=== PATIENT | female | born 1985 | race Caucasian/White ===

== ENCOUNTER 2019-09-15 14:58 | Emergency (ER) | payer OTHER ==
[~2019-09-15] VITALS: Ht 167.6 cm; Wt 70.9 kg
[2019-09-15 15:04] VITALS: TEMP 97.7
[2019-09-15 15:32] LABS: BASO % 0.3 % (0.0-2.0); EOS # 0.2 (0.0-0.7); EOS % 2.1 % (0-4.0); GRAN # 5.2 (1.4-6.5); GRAN % 59.3 % (42.2-75.2); HEMATOCRIT 44.7 % (37.0-47.0); HEMOGLOBIN 14.9 g/dl (12.5-16.0); LYMPH # 2.7 (1.2-3.4); LYMPH % 30.7 % (20.0-51.0); MEAN CELL VOLUME 93 fl (80.0-100.0); MEAN CORPUSCULAR HEMOGLOBIN 31 pg (27.0-31.0); MEAN CORPUSCULAR HGB CONC 33 g/dl (33.0-37.0); MEAN PLATELET VOLUME 11.7 fl (7.4-10.4); MONO # 0.6 (0.1-0.6); MONO % 7.4 % (1.7-9.3); PLATELET COUNT 206 K/mm3 (130-400); RED BLOOD COUNT 4.79 M/mm3 (4.10-5.30); REDCELL DISTRIBUTION WIDTH-CV 11.9 % (11.5-14.5)
[2019-09-15 15:51] LABS: ALANINE AMINOTRANSFERASE 28 U/L (9-52); ALBUMIN 4.8 gm/dL (3.5-5.0); ALKALINE PHOSPHATASE 72 U/L (50-136); ANION GAP 12 mmol/L (7-16); AST,SGOT 27 U/L (15-37); BILIRUBIN,TOTAL 0.8 mg/dL (0.0-1.0); BLOOD UREA NITROGEN 17 mg/dL (7-17); CALCIUM 9.8 mg/dL (8.4-10.2); CARBON DIOXIDE 28 mmol/L (22-30); CHLORIDE 101 mmol/L (98-107); CREATININE, serum 0.74 (0.52-1.25); GLUCOSE 93 mg/dL (74-106); LIPASE 99 U/L (23-300); POTASSIUM 3.8 mmol/L (3.4-5.0); SODIUM 140 mmol/L (137-145)
[2019-09-15 16:05] LABS: TROPONIN-I < 0.012 ng/mL (0.000-0.035)
[2019-09-15 16:08] LABS: AMORPHOUS CRYSTAL Present /uL; MUCOUS Present /lpf; PH 6 (5-8); SQUAMOUS EPITHELIAL 0-2 /hpf; URINE APPEARANCE Hazy; URINE BACTERIA None Seen /hpf; URINE BILIRUBIN Negative (NEGATIVE); URINE BLOOD Negative (NEGATIVE); URINE COLOR Yellow; URINE GLUCOSE Negative (NEGATIVE); URINE KETONE Negative (NEGATIVE); URINE LEUKOCYTE ESTERASE Trace (NEGATIVE); URINE NITRATE Negative (NEGATIVE); URINE PROTEIN(semi-quant) Negative (NEGATIVE); URINE RBC 0-2 /hpf; URINE UROBILINOGEN Negative (NEGATIVE)
[2019-09-15 16:31] LABS: COLLECTION METHOD CLEAN CATCH
[2019-09-15 17:29] VITALS: BP 118/79; PULSE 65
== END 2019-09-15 17:29 | disposition home or self-care (01) ==
LOC: COL.ER 14:58
PROVIDERS: Emergency Medicine
DX: R10.10 Upper abdominal pain, unspecified (principal); Z98.890 Other specified postprocedural states
CPT/HCPCS: J3010